=== PATIENT | male | born 1970 | race Two or more races ===

== ENCOUNTER → 2022-10-13 | Outpatient (CLI) | payer OTHER ==
[2022-10-13 16:20] LABS: ALT 19 U/L (10-49); AST 16 U/L (14-35); African American GFR (CKD) 129.8 (60.0-200.0); Albumin 4.9 g/dL (3.8-4.9); Albumin/Globulin Ratio 2.12 (1.60-3.17); Alkaline Phosphatase 76 U/L (41-126); BUN/Creat Ratio 31.71 Ratio (12.00-20.00); Blood Urea Nitrogen 20.2 mg/dL (9.0-27.0); Calcium 9.4 mg/dL (8.7-10.3); Carbon Dioxide 28.5 mmol/L (20.0-27.5); Chloride 103 mmol/L (96-109); Chol/HDL Ratio 2.88 Ratio; Globulin 2.3 g/dL (1.6-3.3); Glucose 146 mg/dL (70-110); LDL Cholesterol,Calculated 98.5 mg/dL (0.0-131.0); Potassium 4.7 mmol/L (3.5-5.5); Sodium 142 mmol/L (135-145); Total Protein 7.2 g/dL (6.2-8.2)
[2022-10-13 17:33] LABS: Microalbumin Creatinine Ratio <30 mg/g Creat (0-30); Urine Creatinine 54.1 mg/dL (39.0-259.0)
[2022-10-14 09:04] LABS: C-Peptide 1.27 ng/mL (0.81-3.85)
== END | disposition home or self-care (01) ==
LOC: LABWHC1 11:12
PROVIDERS: ATTEND Nurse Practitioner
DX: Z00.00 Encounter for general adult medical examination without abnormal findings (principal); Z12.5 Encounter for screening for malignant neoplasm of prostate; Z13.220 Encounter for screening for lipoid disorders; Z11.59 Encounter for screening for other viral diseases; E11.9 Type 2 diabetes mellitus without complications; L60.9 Nail disorder, unspecified; R06.09 Other forms of dyspnea
CPT/HCPCS: 36415; 80053; 80061; 82043; 82570; 83036; 84153; 84443; 84681; 86803

== ENCOUNTER → 2022-10-16 | Outpatient (CLI) | payer OTHER | END | disposition home or self-care (01) | LOC: LABWHC1 09:25 | PROVIDERS: ATTEND Nurse Practitioner | DX: E11.9 Type 2 diabetes mellitus without complications (principal) | CPT/HCPCS: 36415; 83036 ==

== ENCOUNTER → 2022-11-17 | Outpatient (CLI) | payer OTHER | END | disposition home or self-care (01) | LOC: LABWHC1 11:20 | PROVIDERS: ATTEND Nurse Practitioner | DX: Z12.11 Encounter for screening for malignant neoplasm of colon (principal); E11.9 Type 2 diabetes mellitus without complications | CPT/HCPCS: 83036; 36415; G0328 ==

== ENCOUNTER → 2023-02-09 | Outpatient (CLI) | payer OTHER ==
--- NOTE | 2023-02-09 11:09 | MR ---
EXAMINATION TYPE: MR brain and iac wo/w con DATE OF EXAM: 02/09/2023 COMPARISON: Tinnitus HISTORY: TINNITUS TECHNIQUE: Multiplanar, multisequence images of the brain and brainstem is performed without and with IV contras t, utilizing 6.5 ML mL intravenous Gadavist . FINDINGS: Diffusion weighted images demonstrate no evidence of a recent infarct or other diffusion ab normality. There is mild generalized degenerative change. Small focal areas of mild confluent areas of abnormal signal in the white matter most likely. Midline structures demonstrate normal morphology. The craniocervical junction appears within normal limits. Post contrast images demonstrate no abnormal enhancement. The dural venous sinuses appear pa tent. Globes are symmetric. Changes of mild chronic sinus There is a prominent cisterna magna. No evidence of cerebellopontine angle mass or hypoaeration of the mastoid air cells just ascites. IMPRESSION: 1. No evidence of cerebellopontine angle mass or acoustic schwannoma. 2. Chronic mastoiditis. 3. Mild chronic sinusitis. 4. Mild degenerative and remote ischemic white matter change.
== END | disposition home or self-care (01) ==
LOC: RADMRIMAIN 09:19
PROVIDERS: ATTEND Otolaryngology
DX: H93.19 Tinnitus, unspecified ear (principal); J32.9 Chronic sinusitis, unspecified; G93.89 Other specified disorders of brain; I67.82 Cerebral ischemia; H70.10 Chronic mastoiditis, unspecified ear
CPT/HCPCS: 70553; A9585

== ENCOUNTER → 2023-05-11 | Outpatient (CLI) | payer OTHER ==
[2023-05-11 16:08] LABS: Chol/HDL Ratio 2.26 Ratio; LDL Cholesterol,Calculated 45.7 mg/dL (0.0-131.0)
[2023-05-11 16:16] LABS: ALT 21 U/L (10-49); AST 13 U/L (14-35); Albumin 4.6 g/dL (3.8-4.9); Albumin/Globulin Ratio 2.19 Ratio (1.60-3.17); Alkaline Phosphatase 71 U/L (41-126); BUN/Creat Ratio 28.83 Ratio (12.00-20.00); Blood Urea Nitrogen 17.3 mg/dL (9.0-27.0); Calcium 9.6 mg/dL (8.7-10.3); Carbon Dioxide 27.6 mmol/L (21.6-31.8); Chloride 103 mmol/L (96-109); Globulin 2.1 g/dL (1.6-3.3); Glucose 194 mg/dL (70-110); Potassium 5.2 mmol/L (3.5-5.5); Sodium 140 mmol/L (135-145); Total Bilirubin 2.2 mg/dL (0.3-1.2); Total Protein 6.7 g/dL (6.2-8.2)
[2023-05-12 01:10] LABS: Microalbumin Creatinine Ratio <8 mg/g Cr (0-30)
== END | disposition home or self-care (01) ==
LOC: LABWHC1 11:33
PROVIDERS: ATTEND Internal Medicine Endocrinology, Diabetes & Metabolism
DX: E11.65 Type 2 diabetes mellitus with hyperglycemia (principal)
CPT/HCPCS: 36415; 80053; 80061; 82043; 82570; 83036; 84443

== ENCOUNTER → 2023-06-01 | Outpatient (CLI) | payer OTHER ==
--- NOTE | 2023-06-05 11:47 | CT ---
EXAMINATION TYPE: CT iac wo con CT DLP: 150.0 mGycm, Automated exposure control for dose reduction was used. DATE OF EXAM: 06/01/2023 11:24 AM INDICATION: Patient age:Male; 53 years old; Reason for study: H70.11 CHRONIC MASTOIDITIS, RIGHT EAR; PHH. COMPARISON: MRI 02/09/2023.. TECHNIQUE: Multiple thin axial images were obtained through the temporal bones and internal auditory canals. Additional coronal reformatted images were obtained. No IV contrast was utilized. STENVER a nd POSCHL views were created on a separate work station. CT Contrast: Contrast used: mL of , none. FINDINGS: Right Temporal Bone: External Ear: The external auditory canal is unremarkable, The tympanic membrane is present and unrem arkable. Middle Ear: The ossicles demonstrate a normal appearance. Prussak's space is clear and the scutum i s intact. There is no evidence of osseous erosion and the tegmen tympani is intact. Inner Ear: Cochlea, vestibule and semi circular canals are unremarkable. No evidence of carotid maged l dehiscence. Two and a half turns of the cochlea are identified. The vestibular aqueduct is not enl arged. Mastoid Air Cells: The mastoid air cells are clear. The tegmen mastoideum is intact. The aditus ad an trum is clear. Internal Auditory Canal: The internal auditory canal is unremarkable. Left Temporal Bone: External Ear: The external auditory canal is unremarkable, The tympanic membrane is present and unrem arkable. Middle Ear: The ossicles demonstrate a normal appearance. Prussak's space is clear and the scutum is intact. There is no evidence of osseous erosion and the tegmen tympani is intact. Inner Ear: Cochlea, vestibule and semi circular canals are unremarkable. No evidence of carotid maged l dehiscence. Two and a half turns of the cochlea are identified. The vestibular aqueduct is not enl arged. Mastoid Air Cells: Decreased pneumatization with opacified what few mastoid air cells are remaining. There is opacification of the aditus ad antrum. The tegmen mastoideum is intact. No osseous erosion o r visualized. Internal Auditory Canal: The internal auditory canal is unremarkable. IMPRESSION: 1. Asymmetrically decreased pneumatization of the left mastoid air cells which are opacified.. No ev idence of osseous erosion. 2. The right temporal bone is without evidence for mastoid air cell effusion or acute process.
== END | disposition home or self-care (01) ==
LOC: RADCTMAIN 11:07
PROVIDERS: ATTEND Otolaryngology
DX: H70.11 Chronic mastoiditis, right ear (principal); H74.8X2 Other specified disorders of left middle ear and mastoid
CPT/HCPCS: 70480

== ENCOUNTER → 2024-09-02 | Outpatient (CLI) | payer OTHER ==
--- NOTE | 2024-09-02 10:30 | MR ---
MRI CERVICAL SPINE: CLINICAL HISTORY: Neck pain with RUE radiculopathy. Neck pain with RUE radiculopathy. TECHNIQUE: Multiplanar, multisequence imaging of the cervical spine is performed without IV contrast. COMPARISON: None. FINDINGS: Sagittal images of the cervical spine show the craniocervical junction to appear within nor mal limits. The cervical and upper thoracic spinal cord is normal in course, caliber, and signal. Th ere is grade 1 retrolisthesis C6 on C7. The vertebral body and intravertebral disk heights are shireen l. The bone marrow signal intensity is within normal limits. Axial images show C2-C3 and C3-4 levels to appear within normal limits. Axial images at C4-C5 levels show a left paracentral disc protrusion mildly effacing the anterolatera l thecal sac, bilateral neural foramina are patent. Axial images at C5-C6 levels showed disc bulge with broad-based right paracentral disc protrusion a c omponent effacing the anterolateral thecal sac and causing mild to moderate left and moderate to radha re right-sided neural foraminal narrowing. Axial images at C6-C7 level a broad-based posterior disc protrusion effacing anterior thecal sac and causing moderate left greater than right bilateral neural foraminal narrowing. Axial images at C7-T1 level appear within normal limits. IMPRESSION: Multilevel degenerative change in the mid to lower cervical spine as detailed above. [facility], , 09/02/2024 10:27 AM
== END | disposition home or self-care (01) ==
LOC: RADMRIMAIN 09:10
PROVIDERS: ATTEND Physical Medicine & Rehabilitation
DX: M50.123 Cervical disc disorder at C6-C7 level with radiculopathy (principal); M47.22 Other spondylosis with radiculopathy, cervical region
CPT/HCPCS: 72141

== ENCOUNTER 2024-09-18 08:44 | Outpatient (CLI) | payer OTHER ==
--- NOTE | 2024-09-18 13:28 | P.PAINPG ---
PQRS Measure Charge Sheet Comment: HISTORY OF PRESENT ILLNESS: A 54 yr old male w son at side as a referral from Dr Arndt presents today w severe and chronic neck pain secondary to radiculopathy, spondylosis and facet arthropathy without myelopathy for evaluation. Pt states pain level is provoked at 6 /10 in intensity, constant, localized in the lower cervical spine, predominantly axial, sharp in character w occasional shooting pain towards the R shoulder. Pain is provoked by lifting, cold weather. Pain is alleviated by physician guided home stretches daily since early Aug 2024, manual massages of neck and shoulders by every evening since Jun 2024, heat, medications, topical, repositioning and rest . Cervical disability score at 26. PMH: OA, NIDDM II PSH: Denies SH: Negative x3 FH: Fa- DM All: See list Meds: See list incl Tyl, Aspercreme REVIEW OF ORGAN SYSTEMS: CONSTITUTIONAL: No fevers or chills. No recent weight loss. NEUROLOGICAL: + numbness and tingling along the distal extremities. No seizure disorders or headaches. MUSCULOSKELETAL: + pain PSYCHIATRIC: Denies current depression or suicidal thoughts. Physical Examinations : Constitutional : Cooperative , not in acute distress . Neurologic : Cranial nerve II to XII intact. No focal neurological deficits. Psychiatric : alert & oriented x 3. Matching mood & appropriate affect. Judgment & insight intact. Musculoskeletal : Cervical Spine Motor strength in the deltoid and biceps: Normal right side. Normal Left side Motor strength biceps and the wrist extensors: Normal right side . Normal left side Motor strength in the triceps muscle: Normal right side. Normal left side Deep tendon reflexes: Normal at the biceps. Normal at Brachioradialis. Normal at triceps Vertebral body tenderness to deep palpation over C6 Cervical facet loading test: positive bilaterally Spurling test: positive bilaterally Neck distraction test: positive BL C6- C7 Agusto sign: positive bilaterally Lumbar spine Motor strength lower extremities ,thigh and legs 5/5 Right side , 5/5 Left side Deep tendon reflexes : Normal Knee Jerk. Normal Ankle Jerk Vertebral body tenderness over Villanueva Test positive Lumbar facet Loading Test: positive Right / positive Left Range of motion of the lumbar spine Flexion 30 degrees, extension 10 degrees Straight Leg Raise test: Left/ Right positive at degrees Joselito test: positive right / positive left. Severe tenderness over the Sacroiliac joint on the Right / Left sides Gaenslen test: positive bilaterally Seated flexion test: positive bilaterally. Sacral spine : Severe tenderness over the Sacroiliac joint: right side / left side Range of motion: Flexion of the lumbar spine <60 degrees Range of motion: Extension of the lumbar spine <20 degrees Gaenslen's Test positive Joselito test: positive right side / lef t side Thigh Thrust Test Sacral Thrust Test Imaging: MRI non contrast cervical spine from 09/02/24 reviewed Assessment/ Plan : C5-C7 radiculopathy Recommendation of FELA C6-C7 #1. Risks, benefits of procedure discussed and patient verbalized understanding. Admits to anti- coagulant use or medical history of diabetes. Protocol for discontinuation/ continuation of medications manas procedure discussed. All questions answered. I have spent greater than 30 minutes on patient care today. Dr Singh was available by phone for the evaluation of this patient. The time was used to review the medical records including relevant urine studies and Prescription history (MAPs), review of the available imaging, evaluation and examination of the patient, coordination of care with the medical staff and if applicable referring physicians, as well as creation of the medical record Controlled Substance Measures - Controlled Substance Measures Is patient prescribed a controlled substance at discharge?: Yes When asked, does pt state using other controlled substances?: No If prescribed controlled substance>3 days was MAPS reviewed?: Prescribed <3 Days
[2024-09-21 09:04] VITALS: TEMP 97
--- NOTE | 2024-09-21 09:45 | P.PCN ---
Description of Procedure: PROCEDURE 1. Injection of radio contrast material into cervical epidural space, cervical epidurogram, interpretation of cervical epidurogram, Cervical epidural steroid injection under fluoroscopic guidance, C6-7 (fluoroscopy images available in the radiology department ) 2. Cervical epidurogram. PREOPERATIVE DIAGNOSIS: 1- Cervical Degenerative Disc Diseases 2- Cervical radiculopathy., 3-cervical spondylosis with cervical Facet arthropathy without myelopathy.4-cervical spinal stenosis POSTOPERATIVE DIAGNOSIS: : 1- Cervical Degenerative Disc Diseases , 2- Cervical radiculopathy. 3-,cervical spondylosis with cervical Facet arthropathy without myelopathy. 4-cervical spinal stenosis ANESTHESIA: Local anesthetics infiltration. In the OR continuous pulse ox, EKG, blood pressure and verbal communication was maintained. EBL : None PROCEDURE INDICATION: The patient with neck pain and radiculitis unresponsive to conservative treatment consents for procedure. Discussed the procedure, alternatives and possible complications which may include increased pain, infection, bleeding, nerve damage, paralysis all of which could be permanent. Patient understands and all questions were answered. PROCEDURE DESCRIPTION : After getting consent patient was taken to the OR , positioned in prone position and time out was completed. A pillow was placed under the patients chest to increase the cervical interlaminar space. The cervical area was prepped and draped in the usual sterile fashion. Using anterior-posterior fluoroscopy, interlaminar space was identified and the skin over this site was marked and then infiltrated with 1% lidocaine subcutaneously. Subsequently, a 20-gauge 3-1/2-inch Tuohy epidural needle was inserted and advanced toward the epidural space with the loss of resistance technique using a syringe filled with preservative-free normal saline and guided by AP and lateral fluoroscopy. Negative CSF, negative blood, negative paresthesia. The correct needle position in the epidural space was verified with the injection of 2 mL of the water soluble contrast dye [id number] and observing an excellent epidurogram with the epidural spread of the dye, after repeat negative aspiration 3 mL solution was injected which consists of 1 mL of preservative-free normal saline mixed with 2 mL of 20 mg dexamethasone and a washout of epidurogram was seen. Needle was withdrawn intact, skin was cleansed, and bandages were applied. Disposition: Patient tolerated the procedure well. No complication. Patient was placed in supine position and transferred to the recovery room area in stable condition and there was no evidence of upper or lower extremity motor or sensory deficit after the procedure patient was discharged from recovery room after discharge criteria met and home discharge instructions was given by the staff and patient will follow with the pain clinic in 2-4 weeks
[2024-09-21 09:47] VITALS: RESP 16
[2024-09-21 10:01] VITALS: BP 121/72; PULSE 50
== END 2024-09-21 10:13 | disposition home or self-care (01) ==
LOC: PNWHC3 08:44
PROVIDERS: ATTEND Specialist
DX: M54.12 Radiculopathy, cervical region (principal)
CPT/HCPCS: 62321; 99211

== ENCOUNTER → 2024-09-21 | Day surgery (SDC) | payer OTHER ==
[~2024-09-21] MED LIST: DEXAMETHASONE SOD PHOSPHATE 10 MG/ML 1 ML VIAL ONE; IOPAMIDOL M300 15ML VIAL ONE
[2024-09-21 08:16] LABS: Glucose,Whole Blood 205 mg/dL (70-110)
[2024-09-21 09:53] LABS: Glucose,Whole Blood 200 mg/dL (70-110)
--- NOTE | 2024-09-21 11:53 | FL ---
Fluoroscopy INDICATION: Pain FINDINGS: Fluoroscopy time: 25.5 seconds. Total dose area product (DAP) in uGy*m?, mGy*cm? (or similar): 0.06597 Images obtained: 2. Images document needle and contrast directed towards the lower cervical spine IMPRESSION: 1. Documentation of fluoroscopy. [facility], , 09/21/2024 11:51 AM
== END ==
LOC: ORPAIN 07:35
PROVIDERS: ATTEND Specialist
DX: M47.22 Other spondylosis with radiculopathy, cervical region (principal); M48.02 Spinal stenosis, cervical region; M50.123 Cervical disc disorder at C6-C7 level with radiculopathy; E11.9 Type 2 diabetes mellitus without complications
CPT/HCPCS: 62321; J1100; Q9967